=== PATIENT | male | born 1965 | race Caucasian/White ===

== ENCOUNTER 2021-12-20 15:11 | Outpatient (CLI) | payer BC, SELFPAY ==
[2021-12-20 18:58] LABS: Basophils Absolute Auto 0.1 K/mm3 (0.0-0.1); Basophils Percent Auto 0.8 % (0.2-1.2); Eosinophils Percent Auto 0.4 % (0-4.4); Hematocrit 47.2 % (42.0-52.0); Hemoglobin 15.8 g/dL (14.0-18.0); Immature Granulocyte Absolute 0.01 K/mm3 (0.00-0.031); Immature Granulocyte Percent A 0.1 % (0-0.5); Lymphocytes Absolute Auto 1.69 K/mm3 (0.9-3.2); Lymphocytes Percent Auto 23.4 % (18.3-44.2); Mean Corpuscular HGB Conc 33.5 g/dl (32-36); Mean Corpuscular Hemoglobin 30.9 pg (26-34); Mean Corpuscular Volume 92.4 fl (80-100); Monocytes Absolute Auto 0.6 K/mm3 (0.1-0.6); Monocytes Percent Auto 7.6 % (2.6-8.5); Neutrophils Absolute Auto 4.9 K/mm3 (1.3-6.7); Neutrophils Percent Auto 67.7 % (45.5-73.1); Platelet Count Result 236 k/mm3 (150-375); Red Blood Count 5.11 M/mm3 (4.6-6.20); Red Cell Distribution Width 12.4 % (11.5-14.5); White Blood Count 7.2 K/mm3 (4.5-10.0)
[2021-12-20 19:07] LABS: Alanine Aminotransferase 43 U/L (6-50); Albumin Level 4.7 g/dL (3.5-5.1); Alkaline Phosphatase 74 U/L (38-126); Anion Gap 11 mmol/L (8-16); Aspartate Amino Transferase 83 U/L (17-59); Bilirubin,Total 0.5 mg/dL (0.2-1.3); Blood Urea Nitrogen 21 mg/dL (9-20); Calcium 9.5 mg/dL (8.4-10.2); Carbon Dioxide 27 mmol/L (22-30); Chloride 99 mmol/L (98-107); Cholesterol 200 mg/dL (0-200); Estimated Glomerular Filt Rate > 60; Glucose 115 mg/dL (65-110); HDL Direct 45 mg/dL; Potassium 4.5 mmol/L (3.4-5.0); Sodium 137 mmol/L (137-145); Triglycerides 133 mg/dL (<150)
[2021-12-20 19:20] LABS: LDL Cholesterol Direct 111 mg/dL
[2021-12-20 19:33] LABS: Free T4 Free Thyroxine 0.51 ng/mL (0.78-2.19)
[2021-12-20 19:37] LABS: Prostate Specific Antigen 1.1 ng/mL (< OR = 4.0)
[2021-12-20 21:01] LABS: Thyroid Stimulating Hormone 0.447 uIU/mL (0.465-4.680)
[2021-12-22 19:00] LABS: Triiodothyronine T3 Free 6.2 pg/mL (2.3-4.2)
== END 2021-12-20 15:12 | disposition home or self-care (01) ==
PROVIDERS: PCP Family Medicine; Visit Provider Family Medicine
DX: Z00.00 Encounter for general adult medical examination without abnormal findings (principal); R79.89 Other specified abnormal findings of blood chemistry; E03.9 Hypothyroidism, unspecified
CPT/HCPCS: 36415; 80053; 80061; 84153; 84439; 84443; 84481; 85025; G0103

== ENCOUNTER 2022-01-19 09:58 | Outpatient (CLI) | payer BC, SELFPAY ==
[2022-01-19 19:36] LABS: Alanine Aminotransferase 42 U/L (6-50); Albumin Level 4.4 g/dL (3.5-5.1); Alkaline Phosphatase 64 U/L (38-126); Aspartate Amino Transferase 74 U/L (17-59); Bilirubin,Total 0.6 mg/dL (0.2-1.3)
[2022-01-19 20:16] LABS: Hemoglobin A1C 5.8 % (<5.7)
[2022-01-19 20:47] LABS: Hepatitis B Surface Antigen Negative (Negative)
[2022-01-19 20:53] LABS: HAV RESULT Negative (Negative); Hepatitis B Core IgM Result Negative (Negative)
[2022-01-19 21:04] LABS: Hepatitis C Virus Antibody Negative (Negative)
== END 2022-01-19 09:59 | disposition home or self-care (01) ==
LOC: ANHBWCLAB 10:00
PROVIDERS: PCP Family Medicine; Visit Provider Family Medicine
DX: R74.8 Abnormal levels of other serum enzymes (principal); R73.09 Other abnormal glucose
CPT/HCPCS: 36415; 80074; 80076; 83036

== ENCOUNTER 2022-03-14 15:18 | Outpatient (CLI) | payer BC, SELFPAY ==
[2022-03-14 19:40] LABS: Thyroid Stimulating Hormone 0.549 uIU/mL (0.465-4.680)
[2022-03-14 21:52] LABS: Free T4 Free Thyroxine 0.45 ng/mL (0.78-2.19)
[2022-03-18 05:51] LABS: Triiodothyronine T3 Free 4.3 pg/mL (2.3-4.2)
== END 2022-03-14 15:19 | disposition home or self-care (01) ==
LOC: ANHBWCLAB 15:20
PROVIDERS: PCP Family Medicine; Visit Provider Family Medicine
DX: E03.9 Hypothyroidism, unspecified (principal)
CPT/HCPCS: 36415; 84439; 84443; 84481

== ENCOUNTER → 2022-03-24 08:10 | Outpatient (CLI) | payer BC, SELFPAY ==
--- NOTE | ~2022-03-24 | US_ITS ---
Limited Abdominal Sonogram: Real-time sonographic imaging of the right upper quadrant was performed. Clinical History: Abnormal serum enzymes Findings: The liver appears normal with no evidence of mass lesion or bile duct dilatation. Main por nata vein demonstrates normal direction of flow. The gallbladder is well distended, and appears normal with no evidence of gallstone or wall thickening. The common bile duct measures 5 mm. The visualize d pancreas, aorta, and IVC are unremarkable. Impression: No significant abnormality seen. Reviewed, dictated and finalized at location [] [employer] Impression: No significant abnormality seen.
== END ==
PROVIDERS: PCP Family Medicine; Visit Provider Family Medicine
DX: R74.8 Abnormal levels of other serum enzymes (principal)
CPT/HCPCS: 76705